=== PATIENT | female | born 1935 | race Caucasian/White ===

== ENCOUNTER 2018-10-13 12:53 | Observation (INO) | payer MEDICARE, OTHER ==
[~2018-10-13] VITALS: Ht 152.4 cm; Wt 52.6 kg
[~2018-10-13 12:53] MED LIST: AMLO-150 PO; ATOR10TA9 PO; ESTR0.5T PO; POTA8CAP PO; TELM80TA PO
[2018-10-13] MEDS ORDERED: LACTATED RINGERS 1,000 ML IV SCH (13:36)
[2018-10-13 13:39] VITALS: BP 198/82
[2018-10-13] MEDS ORDERED: FENTANYL PF 100 MCG/2ML ONE ×4 (14:53→17:36)
[2018-10-13] MEDS ORDERED: BUPIVACAINE/EPI 0.5% 1:200K ONE (15:18)
[2018-10-13] MEDS ORDERED: VANCOMYCIN 1,000 MG ONE (15:18)
[2018-10-13] MEDS ORDERED: TRANEXAMIC ACID 100 MG/ML, 10ML ONE (15:33)
[2018-10-13] MEDS ORDERED: CEFAZOLIN 1,000 MG ONE (15:38)
[2018-10-13] MEDS ORDERED: DEXAMETHASONE 4 MG/ML, 1ML ONE (15:38)
[2018-10-13] MEDS ORDERED: PROPOFOL 10 MG/ML, 50ML ONE (15:38)
[2018-10-13] MEDS ORDERED: METOPROLOL 1 MG/ML, 5ML ONE (15:38)
[2018-10-13] MEDS ORDERED: PROPOFOL 10 MG/ML, 20ML ONE (15:38)
[2018-10-13] MEDS ORDERED: hydrALAzine 20 MG/ML, 1ML ONE (15:38)
[2018-10-13] MEDS ORDERED: ONDANSETRON 2MG/ML, 2ML ONE (15:38)
[2018-10-13] MEDS ORDERED: PROPOFOL 100 ML ONE (15:39)
[2018-10-13] MEDS ORDERED: TRANEXAMIC ACID 1,000 MG in SODIUM CHLORIDE 0.9% 100 ML IVPB ONE (17:00)
[2018-10-13] MEDS ORDERED: HYDROmorphone 2 MG/ML, 1ML ONE (17:36)
[2018-10-13] MEDS ORDERED: OXYcodone 5 MG/5 ML ORAL.SOL UDC ONE (17:36)
[2018-10-13] MEDS: FENTANYL PF 100 MCG/2ML IV PRN ×2 (17:38→17:49)
[2018-10-13] MEDS ORDERED: MEPERIDINE/PF 25MG/ML,1ML ONE (17:40)
[2018-10-13] MEDS: HYDROmorphone 2 MG/ML, 1ML IVPush PRN ×3 (17:55→18:21)
[2018-10-13] MEDS ORDERED: KETOROLAC 30 MG/1 ML IV PRN (18:00)
[2018-10-13] MEDS ORDERED: MEPERIDINE/PF 25MG/0.5ML IVPush PRN (18:00)
[2018-10-13] MEDS ORDERED: hydrALAzine 20 MG/ML, 1ML IV PRN (18:00)
[2018-10-13] MEDS ORDERED: LABETALOL 5MG/ML, 20ML IV PRN (18:00)
[2018-10-13] MEDS ORDERED: DIAZEPAM 5 MG/ML, 2ML IVPush PRN (18:00)
[2018-10-13] MEDS ORDERED: OXYcodone 5 MG/5 ML ORAL.SOL UDC PO PRN (18:00)
[2018-10-13] MEDS ORDERED: ALBUTEROL SULFATE 2.5 MG/3 ML NPPB PRN (18:00)
[2018-10-13] MEDS ORDERED: ACETAMINOPHEN 325 MG TABLET PO PRN (18:00)
[2018-10-13] MEDS ORDERED: PROMETHAZINE 25 MG/ML, 1ML IV PRN (18:00)
[2018-10-13] MEDS ORDERED: PROMETHAZINE 25 MG/ML, 1ML ONE (18:04)
[2018-10-13] MEDS ORDERED: SCOPOLAMINE PATCH, 1.5MG PATCH.TD72 TD SCH (19:30)
[2018-10-13] MEDS ORDERED: PROMETHAZINE 25 MG/ML, 1ML IM PRN (19:30)
[2018-10-13] MEDS ORDERED: OXYcodone IR 5MG TABLET PO PRN ×2 (19:30→22:00)
[2018-10-13] MEDS ORDERED: DEXAMETHASONE 4 MG/ML, 1ML IVPush PRN (19:30)
[2018-10-13] MEDS ORDERED: HYDROcodone/APAP 5/325 TABLET PO PRN (19:30)
[2018-10-13] MEDS ORDERED: LORazepam 1MG TABLET PO PRN (19:30)
[2018-10-13] MEDS ORDERED: POLYETHYLENE GLYCOL 17 GM PACKET PO PRN (19:30)
[2018-10-13] MEDS ORDERED: MAGNESIUM HYDROXIDE 8%, 30ML UDC PO PRN (19:30)
[2018-10-13] MEDS ORDERED: PROMETHAZINE 25 MG SUPP PR PRN (19:30)
[2018-10-13] MEDS ORDERED: ONDANSETRON 2MG/ML, 2ML IVPush PRN (19:30)
[2018-10-13] MEDS ORDERED: METOCLOPRAMIDE 5 MG/ML, 2ML IVPush PRN (19:30)
[2018-10-13] MEDS ORDERED: ZOLPIDEM 5MG TABLET PO PRN (19:30)
[2018-10-13] MEDS ORDERED: ALUMINUM/MAG/SIMETHICONE 30 ML UDC PO PRN (19:30)
[2018-10-13] MEDS ORDERED: SENNA/DOCUSATE TABLET PO PRN (19:30)
[2018-10-13] MEDS ORDERED: SODIUM CHLORIDE 0.9% 1,000ML IVBOLUS PRN (19:30)
[2018-10-13] MEDS ORDERED: DIAZEPAM 5 MG TABLET PO PRN (19:30)
[2018-10-13] MEDS ORDERED: METOCLOPRAMIDE 10MG TABLET PO PRN (19:30)
[2018-10-13] MEDS ORDERED: LORazepam 2 MG/ML, 1ML IV PRN (19:30)
[2018-10-13] MEDS ORDERED: DIPHENHYDRAMINE 50 MG/ML, 1ML IVPush PRN (19:30)
[2018-10-13] MEDS ORDERED: BISACODYL 10 MG SUPP PR PRN (19:30)
[2018-10-13] MEDS ORDERED: ONDANSETRON ODT 4 MG PO PRN (19:30)
[2018-10-13] MEDS ORDERED: DIPHENHYDRAMINE 25 MG CAPSULE PO PRN (19:30)
[2018-10-13] MEDS ORDERED: MORPHINE SULFATE 4 MG/ML, 1ML IVPush PRN (19:30)
[2018-10-13 19:44] VITALS: BP 155/63
[2018-10-13] MEDS ORDERED: ATORVASTATIN 10 MG TABLET PO SCH (21:00)
[2018-10-13] MEDS: SODIUM CHLORIDE FLUSH 10ML SYR IVF SCH (21:00)
[2018-10-13] MEDS: POTASSIUM CHLORIDE 20 MEQ in D5%-0.45% NACL 1,000 ML IV SCH (21:20)
[2018-10-13] MEDS: KETOROLAC 30 MG/1 ML IVPush SCH (21:20)
[2018-10-13] MEDS: ACETAMINOPHEN 500 MG TABLET PO SCH (21:21)
[2018-10-13] MEDS: DOCUSATE 100 MG CAPSULE PO SCH (21:21)
[2018-10-13] MEDS: OXYcodone IR 5MG TABLET PO PRN (21:57)
[2018-10-13] MEDS: CEFAZOLIN PMX 2GM/50ML 50 ML IVPB SCH (23:50)
[2018-10-14 00:14] VITALS: BP 155/74
[2018-10-14] MEDS: KETOROLAC 30 MG/1 ML IVPush SCH ×2 (03:42→11:30)
[2018-10-14] MEDS: ACETAMINOPHEN 500 MG TABLET PO SCH ×2 (03:42→11:31)
[2018-10-14] MEDS: POTASSIUM CHLORIDE 20 MEQ in D5%-0.45% NACL 1,000 ML IV SCH (03:43)
[2018-10-14 03:59] VITALS: BP 156/81
[2018-10-14 05:43] LABS: BASOPHILS % (AUTO) 0 % (0-1); EOSINOPHILS % (AUTO) 0 % (1-7); LYMPHOCYTES # (AUTO) 0.63 x10^3/uL (1-3.4); LYMPHOCYTES % (AUTO) 7 % (22-44); MD NO; MEAN CORPUSCULAR HEMOGLOBIN 29.8 pg (27.0-34.8); MEAN CORPUSCULAR HGB CONC 33.3 g/dL (32.4-35.8); MEAN CORPUSCULAR VOLUME 89.6 fL (80-100); MEAN PLATELET VOLUME 8.4 fL (7.4-10.4); MONOCYTES # (AUTO) 0.97 x10^3/uL (0.2-0.8); MONOCYTES % (AUTO) 11 % (2-9); NEUTROPHILS % (AUTO) 82 % (42-75); PLATELET COUNT 280 x10^3/uL (130-400); RED BLOOD COUNT 3.88 x10^6/uL (3.82-5.3); RED CELL DISTRIBUTION WIDTH 15.1 % (9.6-15.2)
[2018-10-14] MEDS ORDERED: ASPIRIN 325 MG TABLET EC PO SCH (06:00)
[2018-10-14] MEDS: CEFAZOLIN PMX 2GM/50ML 50 ML IVPB SCH (08:00)
[2018-10-14] MEDS: SODIUM CHLORIDE FLUSH 10ML SYR IVF SCH (08:02)
[2018-10-14] MEDS: DOCUSATE 100 MG CAPSULE PO SCH (08:05)
[2018-10-14] MEDS: OXYcodone IR 5MG TABLET PO PRN ×2 (08:06→11:33)
[2018-10-14] MEDS ORDERED: OXYC5CAP2 PO (08:59)
[2018-10-14] MEDS ORDERED: AMLODIPINE 5 MG TABLET PO SCH (09:00)
[2018-10-14] MEDS ORDERED: PSYLLIUM PACKET PO SCH (09:00)
[2018-10-14] MEDS ORDERED: DIAZ5TAB4 PO (09:00)
[2018-10-14] MEDS ORDERED: POTASSIUM CHLORIDE 8 MEQ TABLET.ER PO SCH (09:00)
[2018-10-14] MEDS ORDERED: ESTRADIOL 1 MG TABLET PO SCH (09:00)
[2018-10-14] MEDS ORDERED: LOSARTAN 50MG TABLET PO SCH (09:00)
[2018-10-14] MEDS ORDERED: OXYC10TA6 PO (09:01)
[2018-10-14] MEDS ORDERED: CEPH-376 PO (09:02)
[2018-10-14 09:39] VITALS: BP 170/69
[2018-10-14] MEDS ORDERED: ASPI-650 PO (10:36)
[2018-10-14 11:50] VITALS: BP 148/72
== END 2018-10-14 12:03 | disposition home or self-care (01) ==
LOC: OR 12:53 → 4NOR 18:53 → OR 20:21 → DCLOUNGE 10-14 11:59
PROVIDERS: ADMIT Orthopaedic Surgery Orthopaedic Surgery of the Spine; ATTEND Orthopaedic Surgery Orthopaedic Surgery of the Spine
DX: M17.11 Unilateral primary osteoarthritis, right knee (principal); I10 Essential (primary) hypertension; E78.5 Hyperlipidemia, unspecified; Z96.643 Presence of artificial hip joint, bilateral; Z85.828 Personal history of other malignant neoplasm of skin; Z79.899 Other long term (current) drug therapy
CPT/HCPCS: 27447; 36415; 73560; 85025; 96365; 96366; 96375; 96376; 97110; 97161; 97166; 97530; 97535; C1713; C1776; G0378; J0360; J0690; J1100; J1170; J1885; J2175; J2405; J2550; J2704; J3010; J3370; J3480; J7120